=== PATIENT | female | born 1970 | race Caucasian/White ===

== ENCOUNTER → 2023-07-11 | Outpatient (CLI) | payer OTHER | LOC: COL.RAD 10:32 | DX: R19.09 Other intra-abdominal and pelvic swelling, mass and lump (principal) ==

== ENCOUNTER → 2023-08-09 | Outpatient (CLI) | payer OTHER ==
[~2023-08-09] MED LIST: Gadoterate 20 ML VIAL IV ONE
== END ==
LOC: COL.RAD 12:41
DX: D41.01 Neoplasm of uncertain behavior of right kidney (principal)
CPT/HCPCS: A9575